=== PATIENT | female | born 1995 | race Caucasian/White ===

== ENCOUNTER 2016-12-09 21:31 | Emergency (ER) | payer OTHER | END 2016-12-09 23:20 | disposition left against medical advice (07) | LOC: ER1 21:31 | DX: Z53.21 Procedure and treatment not carried out due to patient leaving prior to being seen by health care provider (principal) | CPT/HCPCS: 93005 ==

== ENCOUNTER 2022-03-04 19:10 | Emergency (ER) | payer OTHER ==
[~2022-03-04 19:10] MED LIST: COLACE 100MG C100 MG PO; PRENATE CHEWABLE1 MG PO; VITAFOL-OB+DHA1 EACH PO
[2022-03-04 20:32] LABS: HEMOGLOBIN 12.2 gm/dl (12.3-15.3); RED BLOOD COUNT 3.99 M/UL (4.00-5.10); WHITE BLOOD COUNT 7.5 K/UL (4.5-11.0)
[2022-03-04 21:00] LABS: BUN/CREATININE RATIO 16 (0-10)
[2022-03-04] MEDS ORDERED: MACROBID 100 M100 MG PO (23:31)
== END 2022-03-04 23:40 | disposition home or self-care (01) ==
LOC: ER1 19:10
PROVIDERS: Physician Assistant Medical
DX: O99.891 Other specified diseases and conditions complicating pregnancy (principal); R55 Syncope and collapse; Z90.49 Acquired absence of other specified parts of digestive tract; Z88.1 Allergy status to other antibiotic agents; Z3A.14 14 weeks gestation of pregnancy
CPT/HCPCS: 70450; 80053; 81001; 82550; 82553; 84484; 85025; 87086; 93005; 99284